=== PATIENT | female | born 1960 | race Caucasian/White ===

== ENCOUNTER 2017-05-21 01:17 | Inpatient (IN) | payer BC ==
[~2017-05-21] VITALS: Ht 177.8 cm; Wt 91.3 kg
[2017-05-21 03:43] VITALS: BP 148/91; PULSE 102; RESP 16; TEMP 97.6; O2SAT 100
[2017-05-21] MEDS: hydrOXYzine HCL 50 MG TAB PO PRN ×2 (03:51→14:39)
[2017-05-21] MEDS: diphenhydrAMINE HCL 50 MG CAP - HS PRN PO ×2 (03:52→21:38)
[2017-05-21] MEDS ORDERED: ALUMINUM/MAGNESIUM/SIMETH 30 ML CUP PO PRN (04:00)
[2017-05-21] MEDS ORDERED: BENZTROPINE MESYLATE 1 MG TAB PO PRN (04:00)
[2017-05-21] MEDS ORDERED: diphenhydrAMINE HCL 50 MG/ML VIAL - HS PRN IM (04:00)
[2017-05-21] MEDS ORDERED: BENZTROPINE MESYLATE 2 MG/2 ML VIAL IM PRN (04:00)
[2017-05-21] MEDS ORDERED: MAGNESIUM HYDROXIDE SUSP 30 ML CUP PO PRN (04:00)
[2017-05-21 06:00] VITALS: BP 113/77; PULSE 97; RESP 16; TEMP 98.3; O2SAT 98
[2017-05-21] MEDS: NICOTINE 21 MG/24 HR PATCH T-DERMAL SCH (09:00)
[2017-05-21] MEDS: ACETAMINOPHEN 325 MG TAB PO PRN ×2 (12:48→17:46)
[2017-05-21] MEDS: buPROPion HCL 100 MG TAB PO SCH ×2 (13:45→21:38)
--- NOTE | 2017-05-21 13:56 | HHI.HP ---
Provisional Diagnosis Admission Date May 21, 2017 at 02:55 [place] I. Major depressive disorder, recurrent, severe, without psychosis, anxiety [place] II. Deferred [place] III. Hypertension Certification of Person's Competence To Provide Express and Informed Consent I have personally examined Veronique Mejia , a person being served at [facility] on, May 21, 2017 13:46. Express and informed consent means consent voluntarily given in writing, by a competent person, after sufficient explanation and disclosure of the subject matter involved to enable the person to make a knowing and willful decision without any element of force, fraud, deceit, duress, or other form of constraint or coercion. This person is 18 years of age or older, is not now known to be incompetent to consent to treatment with a guardian advocate, and does not have a health care surrogate or proxy currently making medical treatment decisions. I have found this person to be one of the following: [] Competent to provide express and informed consent, as defined above, for voluntary admission to this facility and is competent to provide express and informed consent for treatment. He/she has the consistent capacity to make well reasoned, willful, and knowing decisions concerning his or her medical or mental health treatment. The person fully and consistently understands the purpose of the admission for examination/placement and is fully capable of personally exercising all rights [place] Incompetent to provide express and informed consent to voluntary admission, and this is incompetent to provide express and informed consent to treatment. The person must be transferred to involuntary status and a petition for a guardian advocate filed with the Circuit Court. [x] Refusing to provide express and informed consent to voluntary admission but is competent to provide express and informed consent for treatment. The person must be discharged or transferred to involuntary status. Form shall be completed within 24 hours of a person's arrival at the receiving facility and filed in the clinical record of each person: 1. Admitted on a voluntary basis 2. Permitted to provide express and informed consent to his/her own treatment 3. Allowed to transfer from involuntary to voluntary status 4. Prior to permitting a person to consent to his or her own treatment after having been previously found incompetent to consent to treatment. History of Present Illness Capacity: Has Capacity HPI The patient is a 57 years old woman, domiciled with her boyfriend in [facility] [place], unemployed, mother of 3 adult kids, with psychiatric history of major depressive disorder, recurrent, without psychosis, no previous psychiatric hospitalizations, no previous suicidal attempts, she is in Wellbutrin 100 mg twice a day prescribed by her PCP, she also reports that she is in Xanax 1 mg 3 times a day, alcohol and cannabis use disorder, medical history of hypertension , was brought to the hospital under Bowman act due to depression and suicidal ideation. On psychiatric evaluation today the patient is very tearful, she seems to be very behavioral dysregulation, labile. The patient says that in the last month she feels last her life is going down the hill, "everything is going wrong", she has been having interpersonal relationship with her family, has lost contact with her 2 kids, has been experiencing frequent disagreement with her boyfriend, unemployed, struggling economically, she says that she has degraded her life of being a 60k per year employed to nothing, lost 4 jobs in the last year and has been very unstable. She reports lack of motivation, hopelessness, helplessness, worthlessness, increased sense of guiltiness, and constant suicidal thoughts, without any specific plan. She also reports increased anxiety, poor sleep at night and poor appetite. She reports once at the use of alcohol, daily use of cannabis. The patient is fully oriented 3, no attention deficit, no fluctuation of consciousness, she is logical, coherent and relevant. No agitation, no aggressive behavior, no paranoia, no delusions present. Review of Systems Constitutional: DENIES: Diaphoretic episodes, Fatigue, Fever, Weight gain, Weight loss, Chills, Dizziness, Change in appetite, Night Sweats Endocrine: DENIES: Abnorml menstrual pattern, Heat/cold intolerance, Polydipsia , Polyuria, Polyphagia Eyes: DENIES: Blurred vision, Diplopia, Eye inflammation, Eye pain, Vision loss , Photosensitivity, Double Vision Ears, nose, mouth, throat: DENIES: Tinnitus, Hearing loss, Vertigo, Nasal discharge, Oral lesions, Throat pain, Hoarseness, Ear Pain, Running Nose, Epistaxis, Sinus Pain, Toothache, Odynophagia Respiratory: DENIES: Apneas, Cough, Snoring, Wheezing, Hemoptysis, Sputum production, Shortness of breath Cardiovascular: DENIES: Chest pain, Palpitations, Syncope, Dyspnea on Exertion , PND, Lower Extremity Edema, Orthopnea, Claudication Gastrointestinal: DENIES: Abdominal pain, Black stools, Bloody stools, Constipation, Diarrhea, Nausea, Vomiting, Difficulty Swallowing, Anorexia Genitourinary: DENIES: Abnormal vaginal bleeding, Dysmenorrhea, Dyspareunia, Sexual dysfunction, Urinary frequency, Urinary incontinence, Urgency, Hematuria , Dysuria, Nocturia, Vaginal discharge Musculoskeletal: DENIES: Joint pain, Muscle aches, Stiffness, Joint Swelling, Back pain, Neck pain Integumentary: DENIES: Abnormal pigmentation, Pruritus, Rash, Nail changes, Breast masses, Breast skin changes, Nipple discharge Hematologic/lymphatic: DENIES: Bruising, Lymphadenopathy Neurologic: DENIES: Abnormal gait, Headache, Localized weakness, Paresthesias, Seizures, Speech Problems, Tremor, Poor Balance Psychiatric: COMPLAINS OF: Depression, Suicidal Ideation, DENIES: Anxiety, Confusion, Mood changes, Hallucinations, Agitation, Homicidal Ideation, Delusions Substance Abuse History Drugs/Alcohol past 12 months Reports weekly use of alcohol, daily use of cannabis Past Family Social History Coded Allergies: aripiprazole (Verified Allergy, Severe, 05/21/17) Current Medications Medications (Trade) Dose Ordered Sig/Michelle Route Start Time Stop Time Status Last Admin (Atarax) 50 mg Q6H PRN PO 05/21/17 04:00 05/21/17 03:51 (Cogentin) 1 mg Q12H PRN PO 05/21/17 04:00 (Cogentin Inj) 1 mg Q12H PRN IM 05/21/17 04:00 (Benadryl) 50 mg HS PRN PO 05/21/17 04:00 05/21/17 03:52 (Benadryl Inj) 50 mg HS PRN IM 05/21/17 04:00 (Tylenol) 650 mg Q4H PRN PO 05/21/17 04:00 05/21/17 12:48 (Milk Of Magnesia Liq) 30 ml DAILY PRN PO 05/21/17 04:00 (Mag-Al Plus Susp Liq) 30 ml Q6H PRN PO 05/21/17 04:00 (Habitrol 21 Mg Patch.24 Hr) 1 patch DAILY T-DERMAL 05/21/17 09:00 Miscellaneous Information 1 HS T-DERMAL 05/21/17 21:00 (Wellbutrin) 100 mg Q12HR PO 05/21/17 13:45 Family Psych History The patient says that her brother has depression Social History The patient was born and raised in [place], she lives in [facility], unemployed, mother of 2 adult kids, her highest level of education is 2 years of college Patient's Strengths (min. 2) Verbal communication Physical Exam Vital Signs Vital Signs Date Time Temp Pulse Resp B/P (MAP) Pulse Ox O2 Delivery O2 Flow Rate FiO2 05/21/17 03:43 97.6 102 16 148/91 (110) 100 Mental Status Examination Appearance: Appropriate Consciousness: Alert Orientation: x4 Motor Activity: Normal gait Speech: Unremarkable Language: Adequate Fund of Knowledge: Adequate Attention and Concentration: Adequate Memory: Unremarkable Mood: Sad Affect: Irritable, Sad Thought Process & Associations: Intact Thought Content: Appropriate Hallucination Type: None Delusion Type: None Suicidal Ideation: Yes Suicidal Plan: No Suicidal Intention: No Homicidal Ideation: No Homicidal Plan: No Homicidal Intention: No Insight: Poor Judgment: Poor Assessment & Plan Problem List: (1) Major depressive disorder, recurrent ICD Codes: F33.9 - Major depressive disorder, recurrent, unspecified Assessment & Plan: Patient is acutely depressed, she reports at least 2 weeks increased and progressive symptomatology of depression, consisting on hopelessness, helplessness, lack of motivation, worthlessness, increased guiltiness, lack of sleep, poor concentration, multiple interpersonal relationship problems, suicidal thoughts. Patient reports at least 3 major stressors in her life including unemployment, problems with her family and boyfriend, gradual de-escalation in social hierarchy. The patient has been treated with Wellbutrin 100 mg twice a day and Xanax 1 mg 3 times a day for depression and anxiety by PCP. She has been compliant on and off with medications. Patient needs psychiatric hospitalization for stabilization. We will restart Wellbutrin 100 mg twice a day. She might benefit of increasing the dose and adding a coadjuvant medication, maybe Seroquel/Abilify. crime prevention worker intervention for psychosocial assessment, collateral information, to coordinating a safe discharge. Assessment & Plan Estimated LOS: Ian Zambrano MD May 21, 2017 13:56
[2017-05-21] MEDS ORDERED: LISI10TA3 PO (14:33)
[2017-05-21] MEDS ORDERED: VALT500T PO (14:33)
[2017-05-21] MEDS ORDERED: PRIM50TA5 PO (14:33)
[2017-05-21] MEDS ORDERED: VENL150C39 PO (14:33)
[2017-05-21] MEDS ORDERED: WELL200T PO (14:33)
[2017-05-21] MEDS ORDERED: MONT10TA4 PO (14:33)
[2017-05-21] MEDS ORDERED: PREM0.452 PO (14:33)
[2017-05-21] MEDS ORDERED: CELE1CAP8 PO ×2 (14:36)
[2017-05-21] MEDS ORDERED: CLAR10CA3 PO (14:36)
--- NOTE | 2017-05-21 17:04 | PD.CONS ---
HPI Service [facility] Hospitalists Consult Requested By Psychiatric services Reason for Consult Medical management Primary Care Physician Unknown Diagnoses: History of Present Illness Written by Farnaz Enriquez, acting as scribe for Dr. Liz on 05/21/17 at 16: 54. This is a 57-year-old woman with past medical history significant for restless leg sdr, major depressive disorder, hypertension, benzodiazepine dependence and alcohol and cannabis use disorder was admitted to inpatient psychiatry under Bowman act due to depression and suicidal ideation. Hospitalist services have been consulted for medical management. Patient seen and examined. Patient appears in nad. Denies any cp, sob, n/v/d/c. No fever or chills. No abd pain . No urinary complaints. Ambulates without any trouble. Review of Systems Except as stated in HPI: all other systems reviewed are Neg Past Family Social History Allergies: Coded Allergies: aripiprazole (Verified Allergy, Severe, 05/21/17) Past Medical History Major depressive disorder Hypertension OA Daily cannabis use/abuse Alcohol use disorder Past Surgical History BTL with reversal and subsequent BTL Uterine ablation Cholecystectomy Foot surgery Reported Medications Claritin 10 mg daily Valtrex 1000 twice BID Lisinopril 10 mg daily Celebrex 200 mg daily Primidone 50 mg daily Wellbutrin SR 200 mg by mouth every 12 Venlafaxine 150 mg by mouth daily Montelukast 10mg daily Prempro one po daily Active Ordered Medications Current Medications Medications (Trade) Dose Ordered Sig/Michelle Route Start Time Stop Time Status Last Admin (Atarax) 50 mg Q6H PRN PO 05/21/17 04:00 05/21/17 14:39 (Cogentin) 1 mg Q12H PRN PO 05/21/17 04:00 (Cogentin Inj) 1 mg Q12H PRN IM 05/21/17 04:00 (Benadryl) 50 mg HS PRN PO 05/21/17 04:00 05/21/17 03:52 (Benadryl Inj) 50 mg HS PRN IM 05/21/17 04:00 (Tylenol) 650 mg Q4H PRN PO 05/21/17 04:00 05/21/17 12:48 (Milk Of Magnesia Liq) 30 ml DAILY PRN PO 05/21/17 04:00 (Mag-Al Plus Susp Liq) 30 ml Q6H PRN PO 05/21/17 04:00 (Habitrol 21 Mg Patch.24 Hr) 1 patch DAILY T-DERMAL 05/21/17 09:00 Miscellaneous Information 1 HS T-DERMAL 05/21/17 21:00 (Wellbutrin) 100 mg Q12HR PO 05/21/17 13:45 05/21/17 13:45 Family History Father, CAD, [place], HTN Mother, uterine cancer Depression Social History Patient denies any tobacco use. She reports occasional EtOH consumption. She denies any illicit drug use. Reported hx of alcohol and cannabis use disorder but patient denies. Physical Exam Vital Signs Vital Signs Date Time Temp Pulse Resp B/P (MAP) Pulse Ox O2 Delivery O2 Flow Rate FiO2 05/21/17 03:43 97.6 102 16 148/91 (110) 100 Physical Exam GENERAL: This is a well-nourished, well-developed female patient, in no apparent distress. Awake and alert. SKIN: No rashes, ecchymoses or lesions. Cool and dry. kaiser left upper lip and lower left eyelid. HEAD: Atraumatic. Normocephalic. No temporal or scalp tenderness. EYES: Pupils equal round and reactive. Extraocular motions intact. No scleral icterus. No injection or drainage. ENT: Nose without bleeding and purulent drainage. Throat without erythema, tonsillar hypertrophy or exudate. Uvula midline. Airway patent. NECK: Trachea midline. No lymphadenopathy. Supple, nontender, no meningeal signs. CARDIOVASCULAR: Regular rate and rhythm without murmurs, gallops, or rubs. RESPIRATORY: Clear to auscultation. Breath sounds equal bilaterally. No wheezes , rales, or rhonchi. GASTROINTESTINAL: Abdomen soft, non-tender, nondistended. No hepato-splenomegaly , or palpable masses. No guarding. MUSCULOSKELETAL: Extremities without clubbing, cyanosis, or edema. No joint tenderness, effusion, or edema noted. No calf tenderness. NEUROLOGICAL: Awake and alert. Cranial nerves II through XII intact. Motor and sensory grossly within normal limits. Five out of 5 muscle strength in all muscle groups. Normal speech. Assessment and Plan Assessment and Plan Major depressive disorder Suicidal ideation - Management per psychiatric team Hypertension - Resume patient's home dose of lisinopril 10 mg daily - Continues to monitor BP and adjust treatment accordingly Restless leg syndrome - resume home dose of Primidone OA - continue on home dose of Celebrex HSV - continue Valtrex DVT prophylaxis - Patient is ambulatory Thank you very kindly for this consultation. We'll continue to follow patient with you. This note was transcribed by DANUTA Pratt . I, Dr. Opal Liz personally performed the history, physical exam, and medical decision making; and confirmed the accuracy of the information in the transcribed note. Authenticated by Dr. Opal Liz on 05/21/17 at 16:54. Discussed Condition With patient, nursing staff Farnaz Enriquez May 21, 2017 17:04 Opal Liz MD May 21, 2017 19:28
[2017-05-21] MEDS: LISINOPRIL 10 MG TAB PO SCH (17:21)
[2017-05-21 17:23] VITALS: BP 149/95; PULSE 102; RESP 18; TEMP 98.6; O2SAT 99
[2017-05-21] MEDS: REMOVE OLD NICOTINE PATCH T-DERMAL SCH (21:00)
[2017-05-21] MEDS: valACYclovir HCL 500 MG TAB PO SCH (21:38)
[2017-05-21] MEDS: MONTELUKAST SODIUM 10 MG TAB PO SCH (21:38)
[2017-05-22 06:00] VITALS: BP 114/55; PULSE 73; RESP 16; TEMP 97.9; O2SAT 98
[2017-05-22] MEDS: NICOTINE 21 MG/24 HR PATCH T-DERMAL SCH (09:00)
[2017-05-22 09:07] LABS: BICARBONATE 25.4 MEQ/L (21.0-32.0); BLOOD UREA NITROGEN 11 MG/DL (7-18); CALCIUM 8.9 MG/DL (8.5-10.1); CHLORIDE 105 MEQ/L (98-107); CREATININE 1.07 MG/DL (0.50-1.00); GLOMERULAR FILTRATION RATE 53 ML/MIN (>89); GLUCOSE,RANDOM 155 MG/DL (74-106); SODIUM (NA) 139 MEQ/L (136-145)
[2017-05-22 09:08] LABS: CHOLESTEROL 201 MG/DL (120-200); TRIGLYCERIDES 155 MG/DL (42-150)
[2017-05-22 09:10] LABS: CHOLESTEROL/ HDL RATIO 3.64 RATIO; HDL CHOLESTEROL 55.1 MG/DL (40.0-60.0); LDL CHOLESTEROL 115 MG/DL (0-99)
[2017-05-22] MEDS: CELECOXIB 200 MG CAP PO SCH (09:50)
[2017-05-22] MEDS: LISINOPRIL 10 MG TAB PO SCH ×2 (09:50→15:47)
[2017-05-22] MEDS: buPROPion HCL 100 MG TAB PO SCH (09:50)
[2017-05-22] MEDS: LORATADINE 10 MG TAB PO SCH (09:51)
[2017-05-22] MEDS: PRIMIDONE 50 MG TAB PO SCH (09:51)
[2017-05-22] MEDS: valACYclovir HCL 500 MG TAB PO SCH ×2 (09:51→20:55)
[2017-05-22] MEDS: ACETAMINOPHEN 325 MG TAB PO PRN ×3 (11:15→21:58)
[2017-05-22 12:30] LABS: HEMOGLOBIN A1C 5.3 % (4.3-6.0)
[2017-05-22] MEDS: hydrOXYzine HCL 50 MG TAB PO PRN (12:41)
--- NOTE | 2017-05-22 13:37 | HHI.PYPN ---
Subjective Remarks This is a request for second opinion. Admission note hospital transfer information was reviewed. Case was discussed with nursing and patient was evaluated. Patient is adamant that she is not on Xanax 1 mg by mouth 3 times a day as her H&P said. Chart was reviewed and it appears that she was not on Xanax and she was negative for benzodiazepines. Was positive for cannabis and barbiturates. Perhaps the barbiturates is a false-positive. She had a subsequent diagnosis in the chart of polysubstance abuse she adamantly denies. Denies abusing alcohol. He said that she takes Effexor in the record but she says that she has been off it for months. She was diagnosed with a UTI in the records and she is asking about antibiotic. She remains depressed but denies suicidal or homicidal ideation intent or plan. Mental Status Examination Appearance: Appropriate Consciousness: Alert Orientation: x4 Motor Activity: Normal gait Speech: Unremarkable Language: Adequate Fund of Knowledge: Adequate Attention and Concentration: Adequate Memory: Unremarkable Mood: Sad Affect: Irritable, Sad Thought Process & Associations: Intact Thought Content: Appropriate Hallucination Type: None Delusion Type: None Suicidal Ideation: No Suicidal Plan: No Suicidal Intention: No Homicidal Ideation: No Homicidal Plan: No Homicidal Intention: No Insight: Poor Judgment: Poor Results Labs Test 05/22/17 08:15 Blood Urea Nitrogen 11 MG/DL Creatinine 1.07 MG/DL Random Glucose 155 MG/DL Calcium Level 8.9 MG/DL Sodium Level 139 MEQ/L Potassium Level 4.1 MEQ/L Chloride Level 105 MEQ/L Carbon Dioxide Level 25.4 MEQ/L Anion Gap 9 MEQ/L Estimat Glomerular Filtration Rate 53 ML/MIN Hemoglobin A1c 5.3 % Triglycerides Level 155 MG/DL Cholesterol Level 201 MG/DL LDL Cholesterol 115 MG/DL HDL Cholesterol 55.1 MG/DL Cholesterol/HDL Ratio 3.64 RATIO Vitals/IOs Vital Signs Date Time Temp Pulse Resp B/P (MAP) Pulse Ox O2 Delivery O2 Flow Rate FiO2 05/22/17 06:00 97.9 73 16 114/55 (74) 98 Assessment & Plan Problem List: (1) Major depressive disorder, recurrent ICD Codes: F33.9 - Major depressive disorder, recurrent, unspecified Assessment & Plan UA, medical consult. Patient ask for Wellbutrin to be adjusted to Wellbutrin SR 200 mg by mouth twice a day as she was taking it before. She is involuntary and this time of competent to take medications. I agree with the first opinion to continue petition. Criteria include suicidal ideation Justification for Cont. Inpt. Patient will decompensate in a less restrictive setting Madi Hunt DO May 22, 2017 13:37
[2017-05-22] MEDS: buPROPion HCL 100 MG SUSTAINED RELEASE TAB PO SCH ×2 (15:47→21:48)
[2017-05-22 18:36] VITALS: BP 145/75; PULSE 106; RESP 18; TEMP 98.1; O2SAT 98
[2017-05-22] MEDS: MONTELUKAST SODIUM 10 MG TAB PO SCH (20:55)
[2017-05-22] MEDS: REMOVE OLD NICOTINE PATCH T-DERMAL SCH (21:00)
[2017-05-22] MEDS: diphenhydrAMINE HCL 50 MG CAP - HS PRN PO (21:58)
--- NOTE | 2017-05-22 22:31 | HHI.PR ---
Subjective Remarks NOT SEEN Objective Vitals Vital Signs Date Time Temp Pulse Resp B/P (MAP) Pulse Ox O2 Delivery O2 Flow Rate FiO2 05/22/17 18:36 98.1 106 18 145/75 (98) 98 05/22/17 06:00 97.9 73 16 114/55 (74) 98 I/O 05/21/17 05/21/17 05/21/17 05/22/17 05/22/17 05/22/17 07:00 15:00 23:00 07:00 15:00 23:00 Intake Total 360 ml Balance 360 ml Intake Oral 360 ml Result Diagram: 05/22/17 0815 Objective Remarks GENERAL: This is a well-nourished, well-developed female patient, in no apparent distress. Awake and alert. SKIN: No rashes, ecchymoses or lesions. Cool and dry. kaiser left upper lip and lower left eyelid. HEAD: Atraumatic. Normocephalic. No temporal or scalp tenderness. EYES: Pupils equal round and reactive. Extraocular motions intact. No scleral icterus. No injection or drainage. ENT: Nose without bleeding and purulent drainage. Throat without erythema, tonsillar hypertrophy or exudate. Uvula midline. Airway patent. NECK: Trachea midline. No lymphadenopathy. Supple, nontender, no meningeal signs. CARDIOVASCULAR: Regular rate and rhythm without murmurs, gallops, or rubs. RESPIRATORY: Clear to auscultation. Breath sounds equal bilaterally. No wheezes , rales, or rhonchi. GASTROINTESTINAL: Abdomen soft, non-tender, nondistended. No hepato-splenomegaly , or palpable masses. No guarding. MUSCULOSKELETAL: Extremities without clubbing, cyanosis, or edema. No joint tenderness, effusion, or edema noted. No calf tenderness. NEUROLOGICAL: Awake and alert. Cranial nerves II through XII intact. Motor and sensory grossly within normal limits. Five out of 5 muscle strength in all muscle groups. Normal speech. A/P Assessment and Plan Major depressive disorder Suicidal ideation - Management per psychiatric team Hypertension - Resume patient's home dose of lisinopril 10 mg daily - Continues to monitor BP and adjust treatment accordingly Restless leg syndrome - resume home dose of Primidone OA - continue on home dose of Celebrex HSV - continue Valtrex DVT prophylaxis - Patient is ambulatory Sanjay Stein MD May 22, 2017 22:31
[2017-05-23 06:08] VITALS: BP 115/69; PULSE 73; RESP 16; TEMP 97.9; O2SAT 98
[2017-05-23] MEDS: buPROPion HCL 100 MG SUSTAINED RELEASE TAB PO SCH (09:00)
[2017-05-23] MEDS: valACYclovir HCL 500 MG TAB PO SCH (09:00)
[2017-05-23] MEDS: LORATADINE 10 MG TAB PO SCH (09:00)
[2017-05-23] MEDS: PRIMIDONE 50 MG TAB PO SCH (09:00)
[2017-05-23] MEDS: LISINOPRIL 10 MG TAB PO SCH (09:00)
[2017-05-23] MEDS: CELECOXIB 200 MG CAP PO SCH (09:00)
[2017-05-23] MEDS: NICOTINE 21 MG/24 HR PATCH T-DERMAL SCH (09:00)
[2017-05-23] MEDS ORDERED: CITA20TA4 PO (12:47)
[2017-05-23] MEDS ORDERED: MACR100C2 PO (12:47)
--- NOTE | 2017-05-23 12:47 | HHI.DS ---
Psychiatry Discharge Summary Inpatient Psychiatric care?: Yes Advance Directive: No Reason Not Provided: Due to Patient Condition Mental Health AdvanceDirective: No Health Care Proxy: No Admission Admission Date May 21, 2017 at 02:55 Admission Diagnosis: (1) Major depressive disorder, recurrent ICD Code: F33.9 - Major depressive disorder, recurrent, unspecified Brief History The patient is a 57 years old woman, domiciled with her boyfriend in [facility], unemployed, mother of 3 adult kids, with psychiatric history of major depressive disorder, recurrent, without psychosis, no previous psychiatric hospitalizations, no previous suicidal attempts, she is in Wellbutrin 100 mg twice a day prescribed by her PCP, she also reports that she is in Xanax 1 mg 3 times a day, alcohol and cannabis use disorder, medical history of hypertension , was brought to the hospital under [facility] act due to depression and suicidal ideation. On psychiatric evaluation today the patient is very tearful, she seems to be very behavioral dysregulation, labile. The patient says that in the last month she feels last her life is going down the hill, "everything is going wrong", she has been having interpersonal relationship with her family, has lost contact with her 2 kids, has been experiencing frequent disagreement with her boyfriend, unemployed, struggling economically, she says that she has degraded her life of being a 60k per year employed to nothing, lost 4 jobs in the last year and has been very unstable. She reports lack of motivation, hopelessness, helplessness, worthlessness, increased sense of guiltiness, and constant suicidal thoughts, without any specific plan. She also reports increased anxiety, poor sleep at night and poor appetite. She reports once at the use of alcohol, daily use of cannabis. The patient is fully oriented 3, no attention deficit, no fluctuation of consciousness, she is logical, coherent and relevant. No agitation, no aggressive behavior, no paranoia, no delusions present. Tobacco Use In Past 30 Days: No Tobacco Past 30 Days Alcohol Use: Monthly or Less Hospital Course Patient was admitted to a locked, inpatient psychiatric unit. A general medical consultation was obtained. Appropriate precautions were in place throughout patient's hospital stay. Patient was seen and examined on the unit by psychiatry and also visited by counselor. Home Wellbutrin was continued. There has been no evidence of any suicidality or homicidality on the inpatient unit. Patient has remained in good behavioral control. Counselor has obtained collateral from the patient's boyfriend, and he reportedly has no concerns about the patient returning home today. On the day of discharge: Patient seen and examined with nurse. Chart reviewed. Case discussed with nursing staff. No behavioral issues overnight. Patient has been denying suicidal ideation to nursing staff. Case discussed with counselor. On my examination today, the patient is requesting discharge from the inpatient psychiatric unit. She says that she reported suicidal ideation at outside hospital and on initial presentation here chiefly to obtain psychiatric help. She says that she would never try to hurt herself because of her children. She denies any suicidal or homicidal ideation, intent or plan on direct questioning now and contracts for safety. She denies any history of suicide attempts in the past. She denies any family history of suicide. She denies any history of chemical dependency issues. She notes that her boyfriend has a gun that is secured and to which she does not have access, and the counselor has confirmed this. Mood remains a little bit on the low side, and the patient feels somewhat overwhelmed by psychosocial stressors. She reports that most disabling symptoms of depression are tearfulness and concentration difficulties. I can elicit no other depressive symptoms. I can elicit no hypomanic or manic symptoms. She denies any audiovisual hallucinations. I can elicit no delusional material. There is no evidence of any impairment in reality construction. She denies side effects from medications. She notes that she has tried Cymbalta, Prozac, Effexor and Abilify in the past. She did experience tardive dyskinesia with Abilify reportedly. She says that any psychotropic medication be initiated would have to be affordable as she has had issues with getting medications due to expense in the past. She has no physical complaints presently. I have offered and recommended that the patient remain on the unit for medication adjustment and further stabilization, but she declines and wishes to be discharged today. Suicide and violence risk assessment on day of discharge both suggest lower imminent risk, and the patient's level of function is adequate for outpatient care. The patient does not meet criteria for ongoing involuntary psychiatric hospitalization, and I have no basis to retain her on the unit over her objection any longer. I have had an extensive discussion with the patient regarding pharmacotherapeutic options going forward including various augmentation strategies to her existing Wellbutrin regimen, such as augmentation with SSRI, lithium, Lamictal, other antipsychotic. After discussion of her pharmacotherapeutic options, we settle on addition of SSRI. Citalopram is widely available and affordable, and so I will select this agent. R/B/A discussed with patient. I have counseled the patient that I will provide her with a short course of this agent with further refills to come from outpatient mental health provider to whom she will be referred on discharge. Patient is to follow-up psychiatrically as arranged by counselor. She is also to follow-up with primary care. I have called over to [facility] to follow-up on patient's urine culture results and have found that she has valdovinos-sensitive E coli UTI, and so I will start her on Macrobid for this. I have counseled the patient to return to the psychiatric emergency room for any concerning psychiatric symptoms as part of a general safety plan. Results Blood Pressure 115 / 69 Vital Signs Date Time Temp Pulse Resp B/P (MAP) Pulse Ox O2 Delivery O2 Flow Rate FiO2 05/23/17 06:08 97.9 73 16 115/69 (84) 98 Laboratory Tests Test 05/22/17 08:15 Creatinine 1.07 MG/DL (0.50-1.00) Random Glucose 155 MG/DL (74-106) Estimat Glomerular Filtration Rate 53 ML/MIN (>89) Triglycerides Level 155 MG/DL (42-150) Cholesterol Level 201 MG/DL (120-200) LDL Cholesterol 115 MG/DL (0-99) Laboratory Results Test 05/22/17 08:15 Cholesterol Level 201 MG/DL (120-200) HDL Cholesterol 55.1 MG/DL (40.0-60.0) Hemoglobin A1c 5.3 % (4.3-6.0) LDL Cholesterol 115 MG/DL (0-99) Triglycerides Level 155 MG/DL (42-150) Summary of Procedures None done Imaging None done Pending results at discharge: No Medications # of Antipsychotic meds at D/C: 0 Approp Antipsych med options 1 - Minimum of three failed multiple trials of monotherapy. 2 - Documented plan to taper to monotherapy due to previous use of multiple meds OR cross-taper in progress at D/C. 3 - Documentation of augmentation of Clozapine. 4 - Justification other than those listed in allowable values 1-3, document here : Discharge Discharge Date: May 23, 2017 Discharge Diagnosis: (1) Major depressive disorder, recurrent, moderate Diagnosis: Principal ICD Code: F33.1 - Major depressive disorder, recurrent, moderate Pt Condition on Discharge: Stable Discharge Disposition: Discharge Home Discharge Instructions Diet Instructions: As Tolerated, No Restrictions Activities you can perform: Weight Bearing as Arthur Scheduled Appointment: [facility] Appointment Date: May 24, 2017 Appointment Time: 7:30 a.m. New Orders: BASIC METABOLIC PROF - 1 Week New Medications: Citalopram (Citalopram) 20 Mg Tab 20 MG PO DAILY for Mental Health for 7 Days, #7 TAB 1 Refill Nitrofurantoin Monohydrate Macrocrystals (Macrobid) 100 Mg Cap 100 MG PO BID for Infection for 7 Days, #14 CAP 0 Refills Continued Medications: Bupropion HCl ER 12 HR (Wellbutrin SR 12 HR) 200 Mg Tab 200 MG PO Q12HR for Control Depression, TAB 0 Refills Celecoxib (Celecoxib) 200 Mg Cap 200 MG PO DAILY for Pain Management, CAP 0 Refills Conjugated Estrogens-Medroxyprogesterone (Prempro Blister Pack) 0.45-1.5 Mg Tab 1 TAB PO DAILY for Estrogen Supplements, #1 PACK 0 Refills Lisinopril (Lisinopril) 10 Mg Tab 10 MG PO DAILY, #30 TAB 0 Refills Loratadine (Claritin) 10 Mg Cap 10 MG PO DAILY for Allergy Management, CAP 0 Refills Montelukast (Montelukast) 10 Mg Tab 10 MG PO HS, #30 TAB 0 Refills Primidone (Primidone) 50 Mg Tab 50 MG PO DAILY for Control Seizures, #60 TAB 0 Refills Valacyclovir (Valtrex) 500 Mg Tab 1000 MG PO QD for Mgmt Viral Infection, #30 TAB 0 Refills Discontinued Medications: Celecoxib (Celecoxib) 200 Mg Cap 200 MG PO DAILY for Pain Management, CAP 0 Refills Venlafaxine ER 24 HR (Venlafaxine ER 24 HR) 150 Mg Cap 150 MG PO DAILY, #30 CAP 0 Refills Discharge Time > 30 minutes Mental Status Examination Appearance: Appropriate, Well dressed/well groomed Consciousness: Alert Orientation: x4 Motor Activity: Normal gait, Other (no motor abnormalities noted) Speech: Unremarkable Language: Adequate Fund of Knowledge: Adequate Attention and Concentration: Adequate Memory: Unremarkable Mood: Other (somewhat depressed) Affect: Appropriate (remains fairly full and reactive) Thought Process & Associations: Intact, Logical, Goal directed, Linear Thought Content: Appropriate Hallucination Type: None Delusion Type: None Suicidal Ideation: No Suicidal Plan: No Suicidal Intention: No Homicidal Ideation: No Homicidal Plan: No Homicidal Intention: No Insight: Adequate Judgment: Adequate Discharge/Advance Care Plan Health Problems: (1) Major depressive disorder, recurrent Goals to promote your health * To prevent worsening of your condition and complications * To maintain your health at the optimal level Directions to meet your goals Take your medications as prescribed Follow your dietary instruction Follow activity as directed Keep your appointments as scheduled Take your immunizations and boosters as scheduled If your symptoms worsen call your PCP, if no PCP go to Urgent Care Center or Emergency Room For 22/11 questions related to your inpatient stay or results of tests pending at discharge, please contact Dr. Johnnie Her at Smoking is Dangerous to Your Health. Avoid second hand smoking Johnnie Her MD May 23, 2017 12:47
[2017-05-23] MEDS ORDERED: NITROFURANTOIN MONOHYD MACROCR 100 MG CAP PO ONE (13:00)
--- NOTE | 2017-05-23 14:10 | HHI.PR ---
Subjective Remarks Follow-up acute kidney injury. Denies urinary symptoms. Discussed with nursing staff Objective Vitals Vital Signs Date Time Temp Pulse Resp B/P (MAP) Pulse Ox O2 Delivery O2 Flow Rate FiO2 05/23/17 06:08 97.9 73 16 115/69 (84) 98 05/22/17 18:36 98.1 106 18 145/75 (98) 98 I/O 05/22/17 05/22/17 05/22/17 05/23/17 05/23/17 05/23/17 07:00 15:00 23:00 07:00 15:00 23:00 Intake Total 360 ml 240 ml Balance 360 ml 240 ml Intake Oral 360 ml 240 ml Result Diagram: 05/22/17 0815 Objective Remarks GENERAL: This is a well-nourished, well-developed female patient, in no apparent distress. Awake and alert. SKIN: No rashes, ecchymoses or lesions. Cool and dry. kaiser left upper lip and lower left eyelid. CARDIOVASCULAR: Regular rate and rhythm without murmurs, gallops, or rubs. RESPIRATORY: Clear to auscultation. Breath sounds equal bilaterally. No wheezes , rales, or rhonchi. GASTROINTESTINAL: Abdomen soft, non-tender, nondistended. No guarding. MUSCULOSKELETAL: Extremities without clubbing, cyanosis, or edema. No joint tenderness, effusion, or edema noted. No calf tenderness. NEUROLOGICAL: Awake and alert. Cranial nerves II through XII intact. Motor and sensory grossly within normal limits. Five out of 5 muscle strength in all muscle groups. Normal speech. A/P Assessment and Plan Major depressive disorder Suicidal ideation - Management per psychiatric team Hypertension - Resume patient's home dose of lisinopril 10 mg daily - Continues to monitor BP and adjust treatment accordingly Restless leg syndrome - resume home dose of Primidone OA - continue on home dose of Celebrex HSV - continue Valtrex, patient confirms she takes once a day Acute kidney injury, mild. Nonoliguric . Avoid nephrotoxins and repeat BMP in 1 week DVT prophylaxis - Patient is ambulatory Sanjay Stein MD May 23, 2017 14:10
== END 2017-05-23 15:05 | disposition home or self-care (01) | DRG 885 ==
LOC: H260 02:55
PROVIDERS: ADMIT Psychiatry & Neurology Psychiatry; ATTEND Psychiatry & Neurology Psychiatry
DX: F33.1 Major depressive disorder, recurrent, moderate (principal); N17.9 Acute kidney failure, unspecified; N39.0 Urinary tract infection, site not specified; I10 Essential (primary) hypertension; F12.90 Cannabis use, unspecified, uncomplicated; B96.20 Unspecified Escherichia coli [E. coli] as the cause of diseases classified elsewhere; Z72.89 Other problems related to lifestyle; Z81.8 Family history of other mental and behavioral disorders; G25.81 Restless legs syndrome; M19.90 Unspecified osteoarthritis, unspecified site; B00.9 Herpesviral infection, unspecified
CPT/HCPCS: 80048; 80061; 83036; Q0163